=== PATIENT | male | born 1990 ===

== ENCOUNTER 2018-09-12 09:41 | Emergency (ER) | payer OTHER ==
[2018-09-12 09:47] VITALS: BP 117/67; PULSE 67; RESP 18; TEMP 98.2; O2SAT 98
--- NOTE | 2018-09-12 10:00 | C.PDOC ---
History Of Present Illness 28-year-old male presents to the ED for evaluation of itchiness and redness to his bilateral eyes for several days. Patient has been taking [id number] medications such as Claritin, Zyrtec, and Benadryl without relief. Patient also admits to occasionally having a runny nose. Patient admits to history of seasonal allergies. He denies any injuries, eye discharge, fever, chills, or vision change. Time Seen by Provider: 09/12/18 09:44 Chief Complaint (Nursing): Eye Problem History Per: Patient History/Exam Limitations: no limitations Onset/Duration Of Symptoms: Days Injury To Eye?: No Associated Symptoms: Itching, Other (redness ) Additional History Per: Patient Past Medical History Reviewed: Historical Data, Nursing Documentation, Vital Signs Vital Signs: Last Vital Signs Temp 98.2 F 09/12/18 09:43 Pulse 67 09/12/18 09:43 Resp 18 09/12/18 09:43 BP 117/67 09/12/18 09:43 Pulse Ox 98 09/12/18 09:43 Primary Care Provider: FAMILY PROVIDER,NO - Medical History PMH: No Chronic Diseases Surgical History: No Surg Hx Family History: States: Unknown Family Hx - Social History Hx Alcohol Use: No Hx Substance Use: No - Immunization History Hx Tetanus Toxoid Vaccination: No Hx Influenza Vaccination: No Hx Pneumococcal Vaccination: No Review Of Systems Constitutional: Negative for: Fever, Chills Eyes: Positive for: Redness (and itchiness to bilateral eyes ). Negative for: Vision Change, Other (eye discharge ) Physical Exam - Physical Exam Appears: Non-toxic, No Acute Distress Skin: Normal Color, Warm, Dry, No Rash Head: Atraumatic, Normacephalic Eye(s): bilateral: PERRL, EOMI, Other (mild scleral injection, mild clear discharge ) Ear(s): Bilateral: Normal Nose: Normal, No Discharge Oral Mucosa: Moist Throat: Normal, No Erythema, No Exudate Neck: Supple Chest: Symmetrical, No Deformity, No Tenderness Cardiovascular: Rhythm Regular, No Murmur Respiratory: Normal Breath Sounds, No Rales, No Rhonchi, No Wheezing Extremity: Normal ROM, Capillary Refill (less than 2 seconds ) Neurological/Psych: Oriented x3, Normal Speech, Normal Cognition ED Course And Treatment O2 Sat by Pulse Oximetry: 98 (on RA) Pulse Ox Interpretation: Normal Progress Note: On re-assessment, patient is resting comfortably, showing no signs of distress, and a stable for. discharge. Patient will be given prescription for eyedrops, and is advised to follow up with his PMD within 1 to 2 days for further evaluation. Disposition Counseled Patient/Family Regarding: Diagnosis, Need For Followup, Rx Given - Disposition Referrals: Yoel Zaragoza MD [Staff Provider] - Disposition: HOME/ ROUTINE Disposition Time: 10:00 Condition: STABLE Additional Instructions: FOLLOW UP WITH EYE DOCTOR WITHIN 1 WEEK USE MEDICATION DIRECTED RETURN TO EMERGENCY ROOM IF YOUR SYMPTOMS WORSEN SEGUIR CON EL MDICO OCULAR DENTRO DE 1 SEMANA UTILICE MEDICAMENTOS JESUS SE DIRIGE VUELVA A LA SEFERINO DE EMERGENCIA SI WANDA SNTOMAS EMPEORARAN Prescriptions: Tobramycin/Dexamethasone [Tobradex St Eye Drops] 3 drop OP Q6 #1 bottle Instructions: Seasonal Allergies (DC), Conjunctivitis (Noninfectious Pinkeye) (DC) Forms: tydy (Faroese) Print Language: GEORGIAN - Clinical Impression Clinical Impression: Allergic conjunctivitis - Scribe Statement The provider has reviewed the documentation as recorded by the Scribe (Dana Stevenson) Provider Attestation: All medical record entries made by the Scribe were at my direction and personally dictated by me. I have reviewed the chart and agree that the record accurately reflects my personal performance of the history, physical exam, medical decision making, and the department course for this patient. I have also personally directed, reviewed, and agree with the discharge instructions and disposition.
== END 2018-09-12 10:04 | disposition home or self-care (01) ==
LOC: C.ER 09:41
DX: H10.13 Acute atopic conjunctivitis, bilateral (principal)